=== PATIENT | male | born 1975 | race Two or more races ===

== ENCOUNTER 2023-01-20 19:42 | Emergency (ER) | payer OTHER ==
[~2023-01-20] VITALS: Ht 175.3 cm; Wt 87.1 kg
[2023-01-20] MEDS ORDERED: CLONAZEPAM1 MG PO (19:59)
[2023-01-20] MEDS ORDERED: LEXAPRO5 MG (19:59)
[2023-01-20] MEDS ORDERED: DIAZEPAM10 MG PO (20:00)
[2023-01-20] MEDS ORDERED: SEROQUEL25 MG PO (20:00)
[2023-01-21] MEDS ORDERED: PEPCID40 MG PO (05:16)
[2023-01-21] MEDS ORDERED: LEVSIN/SL0.125 MG SL (05:16)
[2023-01-21] MEDS ORDERED: PROTONIX40 MG PO (05:16)
== END 2023-01-21 05:29 ==
LOC: ER 19:42
PROVIDERS: General Practice
DX: R10.84 Generalized abdominal pain (principal); R16.0 Hepatomegaly, not elsewhere classified

== ENCOUNTER 2023-02-07 20:00 | Emergency (ER) | payer OTHER ==
[~2023-02-07] VITALS: Ht 175.3 cm; Wt 85.7 kg
[~2023-02-07 20:00] MED LIST: CLONAZEPAM1 MG PO; DIAZEPAM10 MG PO; LEVSIN/SL0.125 MG SL; LEXAPRO5 MG; PEPCID40 MG PO; PROTONIX40 MG PO; SEROQUEL25 MG PO
== END 2023-02-07 23:52 | disposition home or self-care (01) ==
LOC: ER 20:00
PROVIDERS: Nurse Practitioner Family
DX: K29.70 Gastritis, unspecified, without bleeding (principal); Z20.822 Contact with and (suspected) exposure to COVID-19

== ENCOUNTER 2025-04-01 12:45 | Inpatient (IN) | payer OTHER ==
[~2025-04-01] VITALS: Ht 175.3 cm; Wt 89.8 kg
--- NOTE | 2025-04-01 13:14 | NUR ---
PACIENTE ALERTA Y ORIENTADO X 3. REFIERE EL THERESA DE ETHAN FUE MORDIDO POR DAHLIA DE COBB AMIGO ALREDEDOR DE LAS 3 PM.
[2025-04-01] MEDS ORDERED: RESTORIL30 M1 PO (13:17)
[2025-04-01] MEDS ORDERED: VISTARIL50 MG/ML IM (13:18)
[2025-04-01] MEDS ORDERED: VANCOMYCIN HCL 1,000 MG VIAL IV ONE (14:15)
[2025-04-01] MEDS ORDERED: 0.9 % SODIUM CHLORIDE 500 ML IV ONE (14:15)
[2025-04-01] MEDS ORDERED: PANTOPRAZOLE SODIUM 40 MG/VIAL VIAL IV PUSH ONE (14:15)
[2025-04-01] MEDS ORDERED: KETOROLAC TROMETHAMINE 15 MG VIAL IV ONE (14:15)
[2025-04-01] MEDS ORDERED: PIPERACILLIN/TAZOBACTAM SODIUM 3.375 GM VIAL IV ONE (14:15)
[2025-04-01] MEDS ORDERED: TETANUS & DIPHTHERIA TOX,ADULT 0.5 ML VIAL IM ONE (15:45)
[2025-04-01 16:03] LABS: BASO % 0.8 % (0.1-1.2); EOS # 0.00 (0.04-0.54); EOS % 0.0 % (0.7-7.0); LYMPH # 1.32 (1.18-3.74); LYMPH % 16.8 % (19.3-53.1); MEAN PLATELET VOLUME 10.80 fl (9.4-12.4); MONO # 1.02 (0.24-0.82); NEUT # 5.45 (1.56-6.13); NEUT % 69.1 % (34.0-71.1); RED CELL DISTRIBUTION WIDTH 13.8 % (11.6-14.4)
--- NOTE | 2025-04-01 16:07 | NUR ---
SE EDUCA PACIENTE SOBRE EL [place] MEDICO Y ESTA REFIERE ENTENDER. SE CANALIZA Y SE ADMINISTRA MEDICAMENTOS RAINA ORDEN MEDICA. SE SCOTT MUESTRAS DE LABORATORIOS Y PENDIENTE A PLACA
[2025-04-01 16:21] LABS: MONO % 12.9 % (4.7-12.5)
[2025-04-01 16:22] LABS: BUN CREA RATIO 8.0 (7.0-25.0); CREATININE SERUM 0.89 mg/dL (0.70-1.30); GFR 89.76; GLUCOSE FASTING 107.0 mg/dL (65-100); OSMOLALITY SERUM 282.0 MOSM/KG (275-295)
[2025-04-01 17:24] LABS: ERYTHROCYTE SEDIMENTATION RATE 31 mm/hr (0-20)
[2025-04-02] MEDS ORDERED: PIPERACILLIN/TAZOBACTAM SODIUM 3.375 GM in 0.9 % SODIUM CHLORIDE 100 ML IV SCH
[2025-04-02] MEDS ORDERED: METHYLPREDNISOLONE SOD SUCC 125 MG VIAL IV SCH (01:03)
[2025-04-02] MEDS ORDERED: MORPHINE SULFATE 2 MG/ML SYRINGE IV PRN (01:15)
[2025-04-02] MEDS ORDERED: 0.9 % SODIUM CHLORIDE 1,000 ML IV SCH ×2 (01:15→09:00)
[2025-04-02 05:54] LABS: INR 1.03
--- NOTE | 2025-04-02 06:30 | NUR ---
BP 150/100 [facility] MANUAL, SE CONSULTA CON
[2025-04-02] MEDS ORDERED: VANCOMYCIN HCL 1,000 MG VIAL IV ONE (07:45)
[2025-04-02] MEDS ORDERED: ENALAPRILAT DIHYDRATE 1.25 MG/ML VIAL IV ONE (08:30)
[2025-04-02] MEDS ORDERED: NIFEDIPINE 10 MG CAPSULE PO ONE (08:30)
[2025-04-02] MEDS ORDERED: ACETAMINOPHEN 500 MG GEL..CAP PO PRN (09:00)
[2025-04-02] MEDS ORDERED: ENOXAPARIN SODIUM 40 MG/0.4 ML SYRINGE SUBCUTANEO SCH (09:00)
[2025-04-02] MEDS ORDERED: VANCOMYCIN HCL 1,000 MG VIAL IV SCH (09:00)
[2025-04-02] MEDS ORDERED: NIFEDIPINE 30 MG TAB.SA.OSM PO SCH (09:00)
[2025-04-02] MEDS ORDERED: LOSARTAN POTASSIUM 25 MG TABLET PO SCH (09:00)
[2025-04-02] MEDS ORDERED: FAMOtidine 10 MG/ML (4ML VIAL) IV SCH (09:00)
[2025-04-02 17:47] VITALS: BP 155/85; O2SAT 98
[2025-04-03] MEDS ORDERED: AMPICILLIN SODIUM/SULBACTAM NA 3,000 MG VIAL IV SCH
[2025-04-03 01:20] VITALS: BP 124/77; O2SAT 97
[2025-04-03 06:20] LABS: BASO % 0.4 % (0.1-1.2); EOS # 0.00 (0.04-0.54); EOS % 0.0 % (0.7-7.0); LYMPH # 1.36 (1.18-3.74); LYMPH % 16.2 % (19.3-53.1); MEAN PLATELET VOLUME 11.80 fl (9.4-12.4); MONO # 0.49 (0.24-0.82); MONO % 5.8 % (4.7-12.5); NEUT # 6.49 (1.56-6.13); NEUT % 77.4 % (34.0-71.1); RED CELL DISTRIBUTION WIDTH 13.2 % (11.6-14.4)
[2025-04-03 06:45] LABS: ALT/SGPT 100.0 U/L (12-78); AST/SGOT 118.0 U/L (15-37); BILIRUBIN TOTAL 0.73 mg/dL (0.3-1.2); BUN CREA RATIO 13.0 (7.0-25.0); CREATININE SERUM 0.86 mg/dL (0.70-1.30); GFR 93.38; GLOBULINA 3.1 G/DL (2.4-3.5); GLUCOSE FASTING 102.0 mg/dL (65-100); OSMOLALITY SERUM 281.0 MOSM/KG (275-295)
[2025-04-03 07:12] LABS: D DIMER 1.53 MG/L
[2025-04-03 08:45] VITALS: BP 104/86; O2SAT 97
[2025-04-03 18:24] VITALS: BP 160/85; O2SAT 98
[2025-04-04 02:06] VITALS: BP 155/83; O2SAT 98
[2025-04-04 08:49] VITALS: BP 152/91; O2SAT 97
[2025-04-04] MEDS ORDERED: MUPIROCIN 15 GM OINT..GM TUBE NASAL SCH (09:00)
[2025-04-04] MEDS ORDERED: CHLORHEXIDINE GLUCONATE 120 ML BOTTLE TOP SCH (17:00)
[2025-04-04 17:48] VITALS: BP 134/83
== END 2025-04-04 18:14 | disposition home or self-care (01) | DRG 605 ==
LOC: ER 12:46 → SEC-K 04-02 09:21 → MEDI 04-02 09:21
PROVIDERS: General Practice; Internal Medicine Infectious Disease; ADMIT Internal Medicine; ATTEND Internal Medicine
PROC: BP2 Imaging, Non-Axial Upper Bones, Computerized Tomography (CT Scan) (ICD-10-PCS; principal; 2025-04-01)
PROC: BP2 Imaging, Non-Axial Upper Bones, Computerized Tomography (CT Scan) (ICD-10-PCS; 2025-04-01)
DX: S61.451A Open bite of right hand, initial encounter (principal); L03.114 Cellulitis of left upper limb; L03.113 Cellulitis of right upper limb; S61.452A Open bite of left hand, initial encounter; W54.0XXA Bitten by dog, initial encounter; Y93.9 Activity, unspecified; Y92.9 Unspecified place or not applicable; Y99.9 Unspecified external cause status; K29.70 Gastritis, unspecified, without bleeding